=== PATIENT | male | born 1985 | race Caucasian/White ===

== ENCOUNTER 2021-10-23 11:25 | Emergency (ER) | payer OTHER, SELFPAY ==
--- NOTE | ~2021-10-23 | US_ITS ---
EXAMINATION: US SCROTUM CLINICAL INFORMATION: Right testicular pain. COMPARISON: None TECHNIQUE: A sonogram of the scrotum was performed assessing holder-scale appearance and color Doppler flow. Spectral Doppler analysis of the arterial and venous flow were performed in the testes bilaterally. FINDINGS: RIGHT: Right testicle measures 4.5 x 2.5 x 2.9 cm, volume 17.1 mL. No focal testicular parenchymal lesions are visualized. Spectral Doppler analysis of the arterial and venous flow is normal in the right testis. Right epididymal head is normal in size. There is a small right hydrocele. No varicocele is seen. Right epididymal Doppler flow is normal. LEFT: Left testicle measures 4.1 x 2.1 x 3.2 cm, volume 14.2 mL. No focal testicular parenchymal lesions are visualized. Spectral Doppler analysis of the arterial and venous flow is normal in the left testis. Left epididymal head is normal in size. There is small hydrocele. No varicocele is seen. Left epididymal Doppler flow is normal. US/US scrotum doppler IMPRESSION: Bilateral small hydroceles. The testes and epididymis are normal with normal vascular flow.
--- NOTE | ~2021-10-23 | US_ITS ---
EXAMINATION: US SCROTUM CLINICAL INFORMATION: Right testicular pain. COMPARISON: None TECHNIQUE: A sonogram of the scrotum was performed assessing holder-scale appearance and color Doppler flow. Spectral Doppler analysis of the arterial and venous flow were performed in the testes bilaterally. FINDINGS: RIGHT: Right testicle measures 4.5 x 2.5 x 2.9 cm, volume 17.1 mL. No focal testicular parenchymal lesions are visualized. Spectral Doppler analysis of the arterial and venous flow is normal in the right testis. Right epididymal head is normal in size. There is a small right hydrocele. No varicocele is seen. Right epididymal Doppler flow is normal. LEFT: Left testicle measures 4.1 x 2.1 x 3.2 cm, volume 14.2 mL. No focal testicular parenchymal lesions are visualized. Spectral Doppler analysis of the arterial and venous flow is normal in the left testis. Left epididymal head is normal in size. There is small hydrocele. No varicocele is seen. Left epididymal Doppler flow is normal. US/US scrotum IMPRESSION: Bilateral small hydroceles. The testes and epididymis are normal with normal vascular flow.
[2021-10-23 11:53] VITALS: BP 151/66; PULSE 69; RESP 18; TEMP 36.4; O2SAT 98; BMI 23.5
[2021-10-23 13:17] LABS: Appearance Urine CLEAR; Color Urine YELLOW; Glucose Urine UA NEG (NEG); Leukocyte Esterase Urine NEG (NEG); Nitrite Urine NEG (NEG); PH 6.5 (5.0-8.0); Specific Gravity - Urine 1.015 (1.005-1.025); Urine Blood NEG (NEG); Urine Ketones NEG (NEG); Urine Protein NEG (NEG-TRACE)
[2021-10-23 13:24] LABS: RBC Urine 0-2 /HPF (0); WBC Urine 0 /HPF (0-4)
--- NOTE | 2021-10-23 14:33 | ED_ITS ---
HPI - Male Genitourinary General Chief complaint: Urogenital-Male Stated complaint: testicular pain Time Seen by Provider: 10/23/21 11:44 Source: patient Mode of arrival: ambulatory Limitations: no limitations History of Present Illness HPI Narrative: 36-year-old male presenting to the ED with complaints of atraumatic right testicular pain/swelling that has been intermittent over the past 2 weeks. Reports that he is sexually active although does not believe he has an STD. Denies any fevers, chills, abdominal pain, rashes to the penis or the scrotal area, of STDs, penile discharge, back pain or any other symptoms complaints or concerns at this time. Complaint: testicle pain and testicle swelling Onset (ago): week(s) (Two) Duration: intermittent and progressively worsening Location: right testicle Severity: mild Quality: aching Relieving factors: none Exacerbating factors: none Associated symptoms: Reports denies other symptoms Related Data Sexually active: Yes Allergies Allergy/AdvReac Type Severity Reaction Status Date / Time penicillin G [PENICILLIN G] Allergy Unknown NOT KNOWN Unverified 08/16/20 15:38 penicillin V Allergy Unknown unsure, Unverified 12/10/18 00:00 rash, hives Review of Systems Review of Systems: Constitutional : No Weight loss, No Fever, No Chills, No Night Sweats, No Fatigue, NoMalaise ENT/Mouth: No ear pain, No sore throat, No Difficulty swallowing Cardiovascular : No Chest Pain, No SOB, No Dyspnea on Exertion, No Orthopnea, NoEdema, No Palpitations Respiratory : No Cough, No Sputum, No Wheezing, No Dyspnea Gastrointestinal : No Nausea, No Vomiting, No Diarrhea, + abdominal Pain, No Hematochezia, No Melena Genitourinary : + testicular pain, No irregular bleeding, No Dysuria, No Urinary Frequency, No Hematuria,No Urinary Incontinence, No Urgency, No Flank Pain Musculoskeletal : No joint pain, No Myalgias, No Joint Swelling Skin : No Skin Lesions, No rash Neuro : No Weakness, No Numbness, No Paresthesias, No Loss of Consciousness, NoDizziness, No Headache Psych : No Social Issues, Heme/Lymph: No Bruising, No Bleeding,No Lymphadenopathy Endocrine : No Polyuria, No Polydipsia, No Temperature Intolerance PATIENT DENIES ANY THOUGHTS OF STDS Yes all other systems are reviewed and are negative PMFSH Past Medical History Attestation statement: The following information was validated with the patient. Social History Social History Advance Directives: No Advance Directives Information Provided: No Physical Exam Vital Signs: Vital Signs: Last Vital Signs Temp 97.6 F 10/23/21 14:48 Pulse 49 L 10/23/21 14:48 Resp 16 10/23/21 14:48 BP 121/70 10/23/21 14:48 Pulse Ox 97 10/23/21 14:48 Body Mass Index 23.5 vital signs have been reviewed as normal and appeared to be correct. Blood pressure normal. Heart rate normal. Respiration rate normal. Temperature normal. Oxygen saturation normal. Appearance: Alert. Oriented X3. No acute distress. Head: Normal external exam. Normocephalic. Atraumatic. Eyes: PERRLA. EOMI. Conjunctiva and sclera normal. Eyelids normal. ENT: Pharynx normal. Uvula midline. Moist mucous membranes. Neck: Normal inspection. Neck supple. FROM. No adenopathy. No meningeal signs. CVS: Normal heart rate and rhythm. Heart sound normal. No murmurs noted. Pulses normal throughout. Respiratory: No respiratory distress. Painless inspiration. Breath sounds normal. No wheezes/rales/rhonchi noted. Chest nontender. No accessory muscle usage noted or decreased air movement noted. Abdomen: Soft and nontender. Bowel sounds normal in all 4 quadrants. No distention noted. No organomegaly noted. No visible injury noted. : Chaperoned by DICK Galaviz. Normal external exam. No masses/lumps/ecchymosis/edema/erythema/lacerations/lesions/vesicles/induration or tenderness noted. No hernia noted. No inguinal lymphadenopathy noted. Normal penis free of discharge. The scrotum is normal. Testicles are both descended bilaterally and appear normal. No hydrocele or scrotal mass/swelling noted. No varicocele. Epididymides normal. No blue dot sign. Back: No CVA tenderness. Full range of motion noted. Skin: Skin warm and dry. Normal skin color. Normal skin turgor. No rashes/lesions/lacerations noted. Extremities: Extremities exhibit normal range of motion. Extremities nontender. Neuro: Oriented X 3. No motor deficit. No sensory deficit. Reflexes normal. Course Course Course Narrative: 36-year-old male presenting to the ED with complaints of atraumatic right testicular pain/swelling that has been intermittent over the past 2 weeks. Reports that he is sexually active although does not believe he has an STD. Denies any fevers, chills, abdominal pain, rashes to the penis or the scrotal area, of STDs, penile discharge, back pain or any other symptoms c omplaints or concerns at this time. On my exam patient's exam is completely normal he does not have any obvious tenderness on my exam. There is no obvious swelling. no signs of infection. There is no penile discharge. I obtained a UA which was normal no evidence of UTI. Gonorrhea chlamydia is negative. Ultrasound revealed bilateral hydroceles otherwise no other acute processes. Therefore instructed patient to return if any new or worsening symptoms follow-up with PCP/urology. Patient understands agrees with this plan [facility] - Male Genitourinary Medical Records Attestation: I reviewed the patient's medical records. Lab Data Labs: Lab Results 10/23/21 10/23/21 Range/Units 13:10 13:10 Urine Color YELLOW Urine Appearance CLEAR Urine pH 6.5 (5.0-8.0) Ur Specific [place] 1.015 (1.005-1.025) Urine Protein NEG (NEG-TRACE) MG/DL Urine Glucose (UA) NEG (NEG) MG/DL Urine Ketones NEG (NEG) MG/DL Urine Blood NEG (NEG) Urine Nitrite NEG (NEG) Ur Leukocyte Esterase NEG (NEG) Urine RBC 0-2 (0) /HPF Urine WBC 0 (0-4) /HPF Ur Squamous Epith Cells NONE /LPF Urine Bacteria NONE /LPF Chlam trachomat DNA PCR NOT DETECTED (Not Detect.) N.gonorrhoeae DNA (PCR) NOT DETECTED (Not Detect.) Imaging Data Scrotal ultrasound: Attestation: I personally reviewed and interpreted this imaging study as follows: Radiologist's impression: FINDINGS: RIGHT: Right testicle measures 4.5 x 2.5 x 2.9 cm, volume 17.1 mL. No focal testicular parenchymal lesions are visualized. Spectral Doppler analysis of the arterial and venous flow is normal in the right testis. Right epididymal head is normal in size. There is a small right hydrocele. No varicocele is seen. Right epididymal Doppler flow is normal. LEFT: Left testicle measures 4.1 x 2.1 x 3.2 cm, volume 14.2 mL. No focal testicular parenchymal lesions are visualized. Spectral Doppler analysis of the arterial and venous flow is normal in the left testis. Left epididymal head is normal in size. There is small hydrocele. No varicocele is seen. Left epididymal Doppler flow is normal. US/US scrotum doppler IMPRESSION: Bilateral small hydroceles. The testes and epididymis are normal with normal vascular flow. Discharge Plan Discharge Clinical Impression: Hydrocele Patient Disposition: Home, Self-Care Instructions: Hydrocele (ED) Referrals: Flex Fiore MD [Physician] - 2 days Delroy Magana MD [Primary Care Provider] - 2 days Stand Alone Forms: Work/School Release Print Language: Mongolian
[2021-10-23 14:48] VITALS: BP 121/70; PULSE 49; RESP 16; TEMP 36.4; O2SAT 97
[2021-10-23 14:53] LABS: CT PCR NOT DETECTED (Not Detect.); NG PCR NOT DETECTED (Not Detect.)
== END 2021-10-23 15:11 | disposition home or self-care (01) ==
PROVIDERS: Physician Assistant Medical; Emergency Provider Emergency Medicine; PCP Internal Medicine
DX: N43.3 Hydrocele, unspecified (principal); N50.811 Right testicular pain; N50.89 Other specified disorders of the male genital organs; Z79.899 Other long term (current) drug therapy
CPT/HCPCS: 76870; 81001; 87491; 87591; 93975; 99284

== ENCOUNTER 2021-11-13 15:33 | Outpatient (REF) | payer OTHER, SELFPAY ==
[2021-11-13 15:49] LABS: MANUAL DIFF FLAG NO
[2021-11-13 16:02] LABS: Basophils Percent Auto 0.5 % (0-2); Eosinophils Absolute Auto 0.3 X10*3/uL (0.0-0.4); Eosinophils Percent Auto 4.6 % (0-4); Hemoglobin 14.3 g/dl (14.0-18.0); Imm Gran Abs Auto 0.01 X10*3/uL (0.00-0.03); Imm Gran Pct Auto 0.2 % (0.0-0.4); Lymphocytes Absolute Auto 1.4 X10*3/uL (1.2-4.9); Lymphocytes Percent Auto 24.3 % (20-40); Mean Corpuscular HGB Conc 34.9 g/dl (31.0-36.0); Mean Corpuscular Hemoglobin 29.4 pg (27.0-33.0); Mean Corpuscular Volume 84.4 fL (80.0-98.0); Mean Platelet Volume 11.6 fL (9.4-12.4); Monocytes Absolute Auto 0.6 X10*3/uL (0.1-1.2); Monocytes Percent Auto 9.8 % (2-11); Neutrophils Absolute Auto 3.4 x10*3/uL (2.0-8.3); Neutrophils Percent Auto 60.6 % (45-73); Platelet Count 158 X10*3/uL (160-400); Red Blood Count 4.86 X10*6/uL (4.60-5.80); Red Cell Distribution Width 12.5 % (11.0-16.0); White Blood Count 5.6 X10*3/uL (4.8-10.8)
[2021-11-13 16:28] LABS: Alanine Aminotransferase 34 U/L (0-40); Albumin Level 4.7 g/dL (3.5-5.0); Alkaline Phosphatase 82 U/L (39-117); Anion Gap 12 (12-20); Aspartate Amino Transferase 22 U/L (5-37); Bilirubin Total 0.9 mg/dL (0.0-1.0); Blood Urea Nitrogen 19 mg/dL (9-16); Calcium 9.5 mg/dL (8.4-10.2); Carbon Dioxide 28 mmol/L (22-29); Chloride 105 mmol/L (96-108); Cholesterol 178 mg/dL; Estimated Glomerular Filt Rate > 60; Glucose Random 94 mg/dL (60-115); Potassium 4.3 mmol/L (3.3-5.1); Sodium 141 mmol/L (135-145); Total Protein 7.4 g/dL (6.5-8.0)
== END 2021-11-13 15:34 | disposition home or self-care (01) ==
LOC: HO.LAB 15:33
PROVIDERS: PCP Internal Medicine; Visit Provider Internal Medicine
DX: Z00.00 Encounter for general adult medical examination without abnormal findings (principal); K21.9 Gastro-esophageal reflux disease without esophagitis; D72.819 Decreased white blood cell count, unspecified
CPT/HCPCS: 36415; 80053; 82465; 85025

== ENCOUNTER → 2022-01-07 14:36 | Outpatient (BNVA) | payer OTHER, SELFPAY | PROVIDERS: PCP Internal Medicine; Referring Provider Internal Medicine; Visit Provider Surgery ==

== ENCOUNTER 2022-01-29 05:57 | Day surgery (SDC) | payer OTHER, SELFPAY ==
[2022-01-22 16:18] VITALS: BMI 23.5
--- NOTE | 2022-01-28 10:11 | HO.ANESPROP2 ---
Documented by User: Lluvia Muñoz NP 01/28/22 10:14 HPI - Anesthesia Eval Consult details Narrative: 36yo M for Right Hernia Repair Inguinal with Mesh h/o polysubstance abuse - ? last used [facility] [place] Active Problems Active Problems: All Active Problems (Updated 01/22/22 @ 16:08 by Shoshana Soto, MONICA) Right inguinal hernia (Acute) Hydrocele in adult (Acute) Past Medical History Medical History (Updated 01/29/22 @ 06:25 by Adri Jhaveri RN) GERD (gastroesophageal reflux disease) History of alcohol abuse History of depression History of intravenous drug use in remission History of panic attacks Leukopenia Rosacea Family History Family History Paternal Grandfather Cancer of unknown origin Surgical History Surgical History Hx of colonoscopy Social History Social History Are you a primary health care technician to a significant other at home: No Do you presently have visiting nurse or other home services: No Alcohol intake: never Patient Tobacco Use Status: Current someday Tobacco user Tobacco use type: Cigarette Smoked in Last 30 Days: Yes Patient Given Instructions on How to Stop Smoking: Yes Date Education Initiated: 01/22/22 Use of substances other than those prescribed or required for medical reasons: No Have you been hit, kicked, punched, or otherwise hurt by someone within the past year? If so, by whom?: No Are you DNR?: No Advance Directives: No Advance Directives Information Provided: No Advance Directives on File: No Recently lost weight without trying: No Eating poorly because of decreased appetite: No Nutrition Risks: No Nutritional Risk Meds Allergies Allergy/AdvReac Type Severity Reaction Status Date / Time penicillin V Allergy Unknown unsure, Verified 01/29/22 06:24 rash, hives Home Medications Medication Instructions Recorded Confirmed Last Taken Type omeprazole 20 mg capsule,delayed 20 mg PO DAILY 01/07/22 01/22/22 Unknown History release Exam Exam Date and Time: January 28, 2022 1011 Height,Weight and Vital Signs: Height 5 ft 7 in Weight 68.039 kg Pertinent Lab Results Pertinent Lab Results: Laboratory Tests 11/13/21 11/13/21 15:45 15:45 WBC 5.6 Hgb 14.3 Hct 41.0 L Plt Count 158 L Sodium 141 Potassium 4.3 Chloride 105 Carbon Dioxide 28 BUN 19 H Creatinine 1.05 Assessment and Plan Assessment Anesthesia Assessment: Chart Reviewed Documented by User: Leslie Carreon MD 01/29/22 06:59 PMF Past Medical History Medical History (Updated 01/29/22 @ 06:25 by Adri Jhaveri, RN) GERD (gastroesophageal reflux disease) History of alcohol abuse History of depression History of intravenous drug use in remission History of panic attacks Leukopenia Rosacea Family History Family History Paternal Grandfather Cancer of unknown origin Family history of problems with anesthesia: No Surgical History Surgical History Hx of colonoscopy History of Problems with Anesthesia: No Social History Social History Are you a primary health care technician to a significant other at home: No Do you presently have visiting nurse or other home services: No Alcohol intake: never Patient Tobacco Use Status: Current someday Tobacco user Tobacco use type: Cigarette Smoked in Last 30 Days: Yes Patient Given Instructions on How to Stop Smoking: Yes Date Education Initiated: 01/22/22 Use of substances other than those prescribed or required for medical reasons: No Have you been hit, kicked, punched, or otherwise hurt by someone within the past year? If so, by whom?: No Are you DNR?: No Advance Directives: No Advance Directives Information Provided: No Advance Directives on File: No Recently lost weight without trying: No Eating poorly because of decreased appetite: No Nutrition Risks: No Nutritional Risk Meds Allergies Allergy/AdvReac Type Severity Reaction Status Date / Time penicillin V Allergy Unknown unsure, Verified 01/29/22 06:24 rash, hives Home Medications Medication Instructions Recorded Confirmed Last Taken Type omeprazole 20 mg capsule,delayed 20 mg PO DAILY 01/07/22 01/22/22 Unknown History release Exam Airway Mallampati Class: II TM Dist: >3cm Neck ROM: Full Heart: rrr Lungs: cta Assessment and Plan Assessment Anesthesia Assessment: Anesthesia Plan Discussed and Chart Reviewed Final Anesthetic Review Family History of Problems with Anesthesia: No History of Problems with Anesthesia: No NPO: Yes ASA Class: II Final Preanesthetic Review: No Changes in Pt Med Stat, Meds/Allgs Chart Reviewed and Consent Obtained/Reviewed Patient Risk: Intermediate Procedure Risk: Intermediate Anesthetic Plan Anesthetic Plan: GA Disposition: Standard PACU
[2022-01-29 06:17] VITALS: BP 135/84; PULSE 64; RESP 15; TEMP 36.4; O2SAT 96
[2022-01-29] MEDS: Lactated Ringers 1,000 ML 100 ML IVCONT (06:31)
--- NOTE | 2022-01-29 07:29 | MHC.SHP ---
Pre-Procedural Eval Section A Date of Service: 01/29/22 The patient is an INPATIENT: No Changes since office visit: Yes Patient answered all questions; No Cold of Flu in the past 2 weeks, No New Medical Problems and No Changes in Medication The History & Physical has been completed within 30 days and I have reviewed it.: Yes Section B Chief Complaint: Right inguinal hernia, Hydrocele in adult Allergies: Allergies Allergy/AdvReac Type Severity Reaction Status Date / Time penicillin V Allergy Unknown unsure, Verified 01/29/22 06:24 rash, hives Plan Diagnosis/Plan: Unchanged I have reviewed the history and physical and performed a pertinent physical examination on my patient. No changes have occurred unless specified.
--- NOTE | 2022-01-29 08:34 | P.OP_ITS ---
Operative Note Operative Note Date of Service: 01/29/22 Narrative: Preoperative diagnosis:Right inguinal hernia Postoperative diagnosis:same Procedure:Repair of right inguinal hernia with mesh Surgeon: Sohan Sahu MD Production Aide: AZAEL Farnsworth Anesthesia:General LMA Indications for procedure:36-year-old male patient presenting with complaints of a lump in the right groin with some mild abdominal pain. The lump is reducible with light pressure but increases with lifting. Operative findings: Indirect right inguinal hernia Specimen: lipoma of the cord Estimated blood loss: 2 mL Complications: none Procedure details: patient was brought to the OR and placed in a supine position. After administering general anesthesia the patient's abdomen was prepped with ChloraPrep and draped in a sterile fashion. A surgical time-out was called and the consent confirmed. Patient received preoperative antibiotics and Venodyne boots were in place. Local anesthesia consisting of Sensorcaine 0.5% was infiltrated along the right inguinal ligament. Incision was then made over the inguinal ligament carried out through subcutaneous tissue, past Yg's fascia, and up to the external oblique aponeurosis. Additional local was infiltrated below the external oblique aponeurosis. This was then incised with a scalpel and widened with the Metzenbaum scissors. The spermatic cord was then dissected free from the surrounding inguinal canal. The cord was then retracted using a Kevlin drain. The floor of the inguinal canal was found to be intact without evidence of a direct hernia. This the fibers of the cremasteric muscle were then in the cord explored for a indirect sac. No indirect sac could be identified. There was a small lipoma of the cord was excised and sent as a pathology specimen. Just medial to the internal ring a hernia defect was identified at the internal ring. This was dissected free from the surrounding cord structures and reduced into the abdominal cavity. A medium PHS mesh was then obtained. The circular underlay was then deployed within the preperitoneal space. Overlay was then secured to the pubic tubercle, conjoined tendon, and shelving edge of the inguinal ligament using a 0 Polysorb suture. A slit was made in the mesh the mesh wrapped around the spermatic cord at the internal ring. This was then secured to the shelving edge of the inguinal ligament. The internal ring was just tight enough to allow passage of the tip of the index finger. The remaining overlay was placed in the space just below the external oblique aponeurosis laterally. Wounds were then irrigated with saline solution and suctioned dry. No bleeding could be identified. External oblique aponeurosis was then closed using a running 2 0 Polysorb suture. Yg's fascia and dermis were reapproximated using interrupted 3-0 Polysorb sutures. Skin was then closed using a running subcuticular 4-0 Polysorb suture. Steri-Strips, 2 x 2 gauze, and Tegaderm were then applied. The patient tolerated the procedure well. Sponge, instrument, and needle counts were reported as correct. Patient was transferred to PACU in stable condition.
[2022-01-29 08:37] VITALS: BP 136/78; PULSE 68; RESP 16; TEMP 36.4; O2SAT 97
[2022-01-29 08:42] VITALS: BP 135/64; PULSE 68; RESP 16; O2SAT 94
[2022-01-29 08:47] VITALS: BP 118/64; PULSE 63; RESP 16; O2SAT 94
[2022-01-29 08:52] VITALS: BP 120/68; PULSE 78; RESP 18; TEMP 36.2; O2SAT 97
[2022-01-29 09:08] VITALS: BP 125/72; PULSE 83; RESP 16; TEMP 36.1; O2SAT 99
== END 2022-01-29 09:58 | disposition home or self-care (01) ==
PROVIDERS: PCP Internal Medicine; Visit Provider Surgery
PROC: (CPT 49505; principal; 2022-01-29 07:30)
DX: K40.90 Unilateral inguinal hernia, without obstruction or gangrene, not specified as recurrent (principal); D17.6 Benign lipomatous neoplasm of spermatic cord; N43.3 Hydrocele, unspecified; K21.9 Gastro-esophageal reflux disease without esophagitis; Z79.899 Other long term (current) drug therapy; Z88.0 Allergy status to penicillin; F17.210 Nicotine dependence, cigarettes, uncomplicated
CPT/HCPCS: 49505; 88304; C1781; J0690; J1100; J1885; J2250; J2405; J3010

== ENCOUNTER → 2022-02-06 10:52 | Outpatient (BNVA) | payer OTHER, SELFPAY | PROVIDERS: PCP Internal Medicine; Visit Provider Surgery ==

== ENCOUNTER → 2022-02-25 13:11 | Outpatient (BNVA) | payer OTHER, SELFPAY | PROVIDERS: PCP Internal Medicine; Referring Provider Internal Medicine; Visit Provider Surgery | DX: Z13.89 Encounter for screening for other disorder (principal) ==

== ENCOUNTER 2023-02-26 15:11 | Outpatient (REF) | payer OTHER, SELFPAY ==
[2023-02-26 15:42] LABS: MANUAL DIFF FLAG NO
[2023-02-26 16:28] LABS: Basophils Absolute Auto 0.1 X10*3/uL (0.0-0.2); Basophils Percent Auto 1.3 % (0-2); Eosinophils Absolute Auto 0.2 X10*3/uL (0.0-0.4); Eosinophils Percent Auto 5.7 % (0-4); Hematocrit 41.3 % (42.0-52.0); Hemoglobin 14.3 g/dl (14.0-18.0); Imm Gran Abs Auto 0.01 X10*3/uL (0.00-0.03); Imm Gran Pct Auto 0.3 % (0.0-0.4); Lymphocytes Absolute Auto 1.3 X10*3/uL (1.2-4.9); Lymphocytes Percent Auto 33.4 % (20-40); Mean Corpuscular HGB Conc 34.6 g/dl (31.0-36.0); Mean Corpuscular Volume 83.8 fL (80.0-98.0); Mean Platelet Volume 11.9 fL (9.4-12.4); Monocytes Absolute Auto 0.4 X10*3/uL (0.1-1.2); Monocytes Percent Auto 10.7 % (2-11); Neutrophils Absolute Auto 1.9 x10*3/uL (2.0-8.3); Neutrophils Percent Auto 48.6 % (45-73); Platelet Count 158 X10*3/uL (160-400); Red Blood Count 4.93 X10*6/uL (4.60-5.80); Red Cell Distribution Width 12.8 % (11.0-16.0); White Blood Count 3.8 X10*3/uL (4.8-10.8)
[2023-02-26 17:19] LABS: Alanine Aminotransferase 15 U/L (0-40); Albumin Level 4.2 g/dL (3.5-5.0); Alkaline Phosphatase 76 U/L (39-117); Anion Gap 14 (12-20); Aspartate Amino Transferase 18 U/L (5-37); Bilirubin Total 1.6 mg/dL (0.0-1.0); Blood Urea Nitrogen 21 mg/dL (9-16); C Reactive Protein < 0.10 mg/dL (< or = 0.50); Calcium 9.1 mg/dL (8.4-10.2); Carbon Dioxide 27 mmol/L (22-29); Chloride 107 mmol/L (96-108); Cholesterol 140 mg/dL; Estimated Glomerular Filt Rate > 60; Glucose Random 79 mg/dL (60-115); Potassium 4.3 mmol/L (3.3-5.1); Sodium 144 mmol/L (135-145); Total Protein 6.7 g/dL (6.5-8.0)
[2023-02-26 17:42] LABS: Thyroid Stimulating Hormone 1.43 uIU/mL (0.32-4.0); Vitamin B12 561 pg/mL (200-900)
[2023-02-26 18:02] LABS: Appearance Urine Clear; Color Urine Yellow; Glucose Urine UA Negative (Negative); Leukocyte Esterase Urine Negative (Negative); Nitrite Urine Negative (Negative); Urine Blood Negative (Negative); Urine Ketones Negative (Negative); Urine Protein Negative (Neg-Trace)
[2023-02-27 15:06] LABS: CT PCR NOT DETECTED (Not Detect.); NG PCR NOT DETECTED (Not Detect.)
== END 2023-02-26 15:12 | disposition home or self-care (01) ==
LOC: HO.LAB 15:11
PROVIDERS: PCP Internal Medicine; Visit Provider Internal Medicine
DX: R63.4 Abnormal weight loss (principal); R53.83 Other fatigue; Z20.2 Contact with and (suspected) exposure to infections with a predominantly sexual mode of transmission; M79.643 Pain in unspecified hand
CPT/HCPCS: 0353U; 80053; 81003; 82465; 82550; 82607; 84443; 85025; 86140; 87086